=== PATIENT | female | born 1990 | race Caucasian/White ===

== ENCOUNTER → 2024-09-19 | Outpatient (REF) | payer BC ==
[2024-09-19 18:16] LABS: TOTAL PROTEIN,RANDOM URINE 26.4 MG/DL (0.0-14.0)
[2024-09-19 18:34] LABS: CREATININE,RANDOM URINE 299.9 MG/DL
== END ==
LOC: M LAB REF 17:03
PROVIDERS: ATTEND Internal Medicine Nephrology
DX: I10 Essential (primary) hypertension (principal)